=== PATIENT | male | born 1960 | race Caucasian/White ===

== ENCOUNTER 2020-08-03 09:50 | Emergency (ER) | payer MEDICAID ==
[~2020-08-03] VITALS: Ht 165.1 cm; Wt 79.0 kg
[2020-08-03] MEDS ORDERED: KETOROLAC 60MG/2ML VIAL IM ONE (10:30)
[2020-08-03 11:27] VITALS: BP 115/73
[2020-08-03] MEDS ORDERED: MELO-105 MT (14:36)
== END 2020-08-03 15:26 | disposition home or self-care (01) ==
LOC: ER 09:50
DX: M17.11 Unilateral primary osteoarthritis, right knee (principal)
CPT/HCPCS: 73560; 96372; 99283; J1885; Z7610